=== PATIENT | male | born 1945 | race Caucasian/White ===

== ENCOUNTER 2021-01-12 01:45 | Emergency (ER) | payer MEDICARE, BC ==
[~2021-01-12] VITALS: Ht 182.9 cm; Wt 83.9 kg
[2021-01-12] MEDS ORDERED: METH1TAB PO (02:12)
[2021-01-12] MEDS ORDERED: ALLO100T PO (02:12)
[2021-01-12] MEDS ORDERED: ACETAMINOPHEN ES 500 MG TABLET PO ONE (02:45)
[2021-01-12] MEDS ORDERED: IV NORMAL SALINE 500 ML BAG IV ONE ×2 (02:45→04:30)
[2021-01-12 03:08] LABS: HEMATOCRIT 39.4 % (36.7-47.1); MEAN CORPUSCULAR HEMOGLOBIN 31.6 uug (23.8-33.4); MEAN CORPUSCULAR VOLUME 95.2 fL (73.0-96.2); PLATELET COUNT (AUTO) 177 K/uL (152-348)
[2021-01-12 03:12] LABS: CARBON DIOXIDE 17 mmol/L (21-32); CHLORIDE 107 mmol/L (98-107); CREATININE 3.8 mg/dL (0.6-1.3); GLUCOSE 118 mg/dL (74-106); POTASSIUM 3.2 mmol/L (3.5-5.1); UREA NITROGEN, BLOOD 49 mg/dL (7-18)
[2021-01-12] MEDS ORDERED: AZITHROMYCIN 250 MG TABLET PO ONE (03:15)
[2021-01-12] MEDS ORDERED: GUAIFENESIN/CODEINE 5 ML LIQUID UDC PO ONE (03:15)
[2021-01-12] MEDS ORDERED: ACETAMINOPHEN ES 500 MG TABLET ONE (03:18)
[2021-01-12 03:23] LABS: ALANINE AMINOTRANSFERASE 35 U/L (16-63); ALKALINE PHOSPHATASE 84 U/L (50-136); ASPARTATE AMINOTRANSFERASE 25 U/L (15-37); BILIRUBIN,DIRECT 0.1 mg/dL (0.0-0.2); BILIRUBIN,TOTAL 0.4 mg/dL (0.2-1.0); TOTAL PROTEIN, SERUM 7.1 g/dL (6.4-8.2)
[2021-01-12] MEDS ORDERED: AZITHROMYCIN 250 MG TABLET ONE (03:28)
[2021-01-12] MEDS ORDERED: GUAIFENESIN/CODEINE 5 ML LIQUID UDC ONE (03:28)
[2021-01-12] MEDS ORDERED: AZIT250T13 PO (03:53)
[2021-01-12] MEDS ORDERED: GUAI-671 PO (03:53)
--- NOTE | 2021-01-12 04:15 | NUR ---
Dr Baeza into re eval patient.
[2021-01-12] MEDS ORDERED: TDAP DIPH,PERTUSS,TET VAC/PF 0.5 ML DISP.SYRIN IM ONE ×2 (04:45→04:48)
--- NOTE | 2021-01-12 05:06 | NUR ---
IV removed. Catheter intact and site benign. Pressure and 4x4 gauze applied to site. No bleeding noted.
[2021-01-12 06:09] VITALS: BP 110/66
--- NOTE | 2021-01-12 06:09 | NUR ---
Patient discharged to home in stable condition with taking patient home. Written and verbal after care instructions given. Patient verbalizes understanding of instructions. Stressed follow up or return to ER for worsening s/s.
== END 2021-01-12 06:10 | disposition home or self-care (01) ==
LOC: ER 01:50
DX: J20.9 Acute bronchitis, unspecified (principal); E86.0 Dehydration; Z20.822 Contact with and (suspected) exposure to COVID-19; R94.31 Abnormal electrocardiogram [ECG] [EKG]; Z93.3 Colostomy status; Z93.6 Other artificial openings of urinary tract status; N28.9 Disorder of kidney and ureter, unspecified; Z85.51 Personal history of malignant neoplasm of bladder
CPT/HCPCS: 36415; 70030-TC; 71045; 85025; 90715; 93005; A4663; A9150; J7030; Q0144